=== PATIENT | male | born 1965 | race Caucasian/White ===

== ENCOUNTER 2020-07-08 09:49 | Day surgery (SDC) | payer BC ==
[~2020-07-08] VITALS: Ht 193 cm; Wt 122.7 kg
[2020-07-08 10:20] LABS: CALC OSMOLALITY 278 mosm/kg (275-300); CALCIUM 9.2 mg/dL (8.5-10.1); CARBON DIOXIDE 28.1 mmol/L (21.0-32.0); CHLORIDE - SERUM 104 mmol/L (98-107); GLUCOSE 102 mg/dL (74-106); HEMATOCRIT 44.5 % (42.0-54.0); HEMOGLOBIN 15.2 g/dL (13.5-17.5); MCH 32.3 pg (26.0-34.0); MCHC 34.2 g/dL (31.0-37.0); MCV 94.4 fL (80.0-100.0); MEAN PLATELET VOLUME 6.7 fL (7.4-10.4); POTASSIUM - SERUM 4.3 mmol/L (3.5-5.1); RBC 4.72 10x6/uL (4.20-6.10); RDW 13.1 % (11.5-14.5); SODIUM 140 mmol/L (136-145); UREA NITROGEN 12 mg/dL (7-18); WBC 7.4 10x3/uL (4.8-10.8); eGFR NON AFRICAN AMERICAN 83 mL/min (90-120)
[2020-07-08 12:38] VITALS: Ht 193 cm; Wt 122.7 kg
--- NOTE | 2020-07-08 15:39 | NUR ---
1534 DR. ALMA MARQUIS. 1536 XRAY NOTIFIED OF ROOM NUMBER. PT. INFORMED NPO TILL POST CXR RESULTS.
--- NOTE | 2020-07-08 15:45 | NUR ---
1545 PORTABLE CXR DONE AT BEDSIDE.
--- NOTE | 2020-07-08 15:49 | NUR ---
1541 DR. MARQUEZ [facility] [place]. KAMINSKI SERVED.
--- NOTE | 2020-07-08 15:52 | NUR ---
155 DWAIN FELDMAN SERVED. DENIES PROBLEMS, FAMILY AT SIDE.
--- NOTE | 2020-07-09 16:23 | OP ---
PATIENT NAME: SÁNCHEZ MEADE MEDICAL RECORD: [id number] :65 LOCATION:D.OPS ADMISSION DATE: SURGEON: ARTURO MARQUEZ MD DATE OF OPERATION: 07/08/2020 PREOPERATIVE DIAGNOSIS: Desires screening colonoscopy. POSTOPERATIVE DIAGNOSES: Desires screening colonoscopy with 2.0 cm sessile polyp that appeared to be adenomatous and was right across from the ileocecal valve. PROCEDURE: 1. Total colonoscopy to cecum. 2. Hot biopsy forceps polypectomy times 1. SURGEON: Arturo Marquez MD [employer]CISION [employer]CRAFT [employer]UCTURE ASSEMBLER: None. BLOOD LOSS: Minimal. ANESTHESIA: IV sedation. COMPLICATIONS: None. The risks, possible complications, and alternatives of the procedure were explained to the patient. He elects to proceed. ENDOSCOPIC COURSE: The patient was conveyed to the endoscopy suite electively on 07/08/2020. IV sedation was induced by the anesthesia staff. The patient was placed in the Richards position. A digital rectal examination was performed. A colonoscope was inserted through the anus. It was easily advanced to the cecum. The prep was adequate. I slowly withdrew the endoscope. A combination of normal imaging and narrow band imaging were utilized. A hot biopsy forceps polypectomy was performed. I then ablated the tissue at the periphery of the polyp with the argon plasma software development intern utilizing the right colon in the setting of the forced mode. Two resolution clips were used for tissue reinforcement and hemostasis. I slowly withdrew the endoscope. A combination of normal imaging and narrow band imaging were utilized. I dragged the folds. The pullback was greater than a 16-minute pullback. A retroflexed view was obtained in the rectum. I then unretroflexed the scope and removed under direct vision. Specifically, I noted no anal abnormality. The patient states the sometimes he feels a foreign body sensation in his anus and I identified no polyp, no mass, no foreign body. His prostate was slightly enlarged with symmetric and was without nodules. I will see him in the office in 2 to 3 weeks. I will plan for his next colonoscopy to take place in 1 year. TRANSINT:[id number] Voice Confirmation ID: [id number] DOCUMENT ID: [id number] OPERATIVE REPORT [id number] MAGDYSÁNCHEZ MAURICE ARTURO MARQUEZ MD at 2629 CC: [id number] DICTATION DATE: 07/08/20 1552 CLOTHES DESIGNER: 07/08/20 2341 [facility] 07/08/20 [id number] [place] [id number]
== END 2020-07-08 16:30 | disposition home or self-care (01) ==
LOC: D.OPS 09:49
PROVIDERS: Anesthesiology; ATTEND Surgery
DX: Z12.11 Encounter for screening for malignant neoplasm of colon (principal); K63.5 Polyp of colon